=== PATIENT | male | born 1965 | race Caucasian/White ===

== ENCOUNTER 2017-09-08 17:12 | Emergency (ER) | payer OTHER ==
[~2017-09-08] VITALS: Ht 177.8 cm; Wt 119.8 kg
[~2017-09-08 17:12] MED LIST: HYDROCODONE-AP1 EAC6 PO; NORCO 5-325 TA1 EACH PO; NORFLEX100 MG PO; ONDANSETRON HCL4 M2 PO; PLAVIX 75 MG TA75 M1 PO; VALIUM5 MG PO; ZPAK PO
[2017-09-08] MEDS ORDERED: ASPIR 8181 M1 PO (17:25)
[2017-09-08] MEDS ORDERED: MEDROLDOSEPACK PO (17:26)
[2017-09-08] MEDS ORDERED: TRAMADOL 50 MG50 MG PO (17:26)
[2017-09-08 18:02] LABS: ABSOLUTE BASOPHILS 0.1 thou/uL (0.0-0.2); ABSOLUTE EOSINOPHILS 0.1 thou/uL (0.0-0.7); ABSOLUTE LYMPHOCYTES 2.3 thou/uL (0.8-5.3); ABSOLUTE MONOCYTES 0.2 thou/uL (0.0-1.2); ABSOLUTE NEUTROPHILS 3.7 thou/uL (1.6-8.1); BASOPHILS 1.2 %; EOSINOPHILS 1.4 %; HEMATOCRIT 50.2 % (42.0-52.0); LYMPHOCYTES 35.4 %; MCH 31.2 pg (26.0-34.0); MCHC 33.9 g/dL (28.0-37.0); MCV 91.9 fL (80.0-100.0); MONOCYTES 3.5 %; MPV 7.8 fl. (7.2-11.1); NUCLEATED RBCS 0 /100WBC; PLATELET COUNT* 297 thou/uL (150-400); POLYS 58.5 %; RBC 5.46 mil/uL (4.50-6.00); RDW-CV 14.4 % (10.5-14.5); WBC 6.4 thou/uL (4.0-11.0)
[2017-09-08 18:10] LABS: PROTIME 10.2 Seconds (9.20-11.50)
[2017-09-08 18:26] LABS: ANION GAP 8 mmol/L (7-16); BUN 12 mg/dL (7-18); CALCIUM 9.3 mg/dL (8.5-10.1); CHLORIDE 98 mmol/L (98-107); CO2 29 mmol/L (21-32); CREATININE 1.2 mg/dL (0.6-1.3); GLUCOSE 93 mg/dL (70-99); POTASSIUM 3.8 mmol/L (3.5-5.1); SODIUM 135 mmol/L (136-145)
[2017-09-08 18:41] LABS: ALBUMIN 3.7 g/dL (3.4-5.0); ALKALINE PHOSPHATASE 73 U/L (46-116); LIPASE 141 U/L (73-393); NT-PRO BRAIN NAT PEPTIDE 73 pg/mL (<300); SGOT 36 U/L (15-37); SGPT 61 U/L (30-65); TOTAL BILIRUBIN 0.5 mg/dL (<0.1-1.0); TOTAL PROTEIN 8.8 g/dL (6.4-8.2); TROPONIN-I LEVEL <0.06 ng/mL (<0.06)
[2017-09-08] MEDS ORDERED: MEDROL DOSPAK21 TA1 PO (18:52)
[2017-09-08] MEDS ORDERED: HYDROCODON-ACE1 EAC7 PO (18:52)
[2017-09-08 19:05] VITALS: BP 131/72
--- NOTE | 2017-09-09 13:37 | EKG ---
[place] [address] ELECTROCARDIOGRAM REPORT Name: PITO ZENG Room: [facility]#: [id number] Admission: 09/08/17 Attend Phys: Discharge: 09/08/17 Date of : 65 Report #: [id number] THIS REPORT FOR: //name// [facility] ED Test Date: 2017-09-08 Test Time: 17:32:40 Pat Name: PITO ZENG Department: Room: Gender: M Category Development Manager: [place] : 1965 Requested By: Bandar Murphy Order Number: [id number] MD: Saman Brink Measurements Intervals [place] Rate: 86 P: 47 UT: 157 QRS: 11 QRSD: 99 T: 39 QT: 363 QTc: 434 Interpretive Statements Sinus rhythm Baseline wander in lead(s) V6 Compared to ECG 06/01/2016 12:39:37 No significant changes Electronically Signed On 09-09-2017 13:36:50 CDT by Saman Brink [email or web address] <ELECTRONICALLY SIGNED> By: Saman Brink MD, [facility] 09/09/17 1336 173 31 Saman Brink MD, FACC /EPI
== END 2017-09-08 19:05 | disposition home or self-care (01) ==
LOC: M.ERS 17:12
PROVIDERS: Emergency Medicine
DX: M13.852 Other specified arthritis, left hip (principal); R07.89 Other chest pain; E78.00 Pure hypercholesterolemia, unspecified

== ENCOUNTER 2018-11-17 15:07 | Emergency (ER) | payer OTHER ==
[~2018-11-17] VITALS: Ht 177.8 cm; Wt 117.9 kg
[~2018-11-17 15:07] MED LIST changes: +ASPIR 8181 M1 PO; +HYDROCODON-ACE1 EAC7 PO; +MEDROL DOSPAK21 TA1 PO; +MEDROLDOSEPACK PO; +TRAMADOL 50 MG50 MG PO
[2018-11-17 16:12] VITALS: BP 143/78
== END 2018-11-17 16:12 ==
LOC: M.ERS 15:07
DX: M20.012 Mallet finger of left finger(s) (principal); E78.00 Pure hypercholesterolemia, unspecified; F17.210 Nicotine dependence, cigarettes, uncomplicated; Z90.49 Acquired absence of other specified parts of digestive tract; Z98.890 Other specified postprocedural states

== ENCOUNTER 2019-01-24 18:19 | Emergency (ER) | payer OTHER ==
[~2019-01-24] VITALS: Ht 177.8 cm; Wt 120.2 kg
[2019-01-24] MEDS ORDERED: NORCO 5-325 TA1 EAC1 PO (19:14)
[2019-01-24 20:10] VITALS: BP 142/85
== END 2019-01-24 19:55 | disposition home or self-care (01) ==
LOC: M.ERS 18:19
DX: S46.221A Laceration of muscle, fascia and tendon of other parts of biceps, right arm, initial encounter (principal); Z98.890 Other specified postprocedural states; X50.0XXA Overexertion from strenuous movement or load, initial encounter; Y92.89 Other specified places as the place of occurrence of the external cause; Y93.89 Activity, other specified; Y99.8 Other external cause status

== ENCOUNTER 2020-08-28 15:39 | Emergency (ER) | payer OTHER ==
[~2020-08-28] VITALS: Ht 177.8 cm; Wt 119.3 kg
[~2020-08-28 15:39] MED LIST changes: +NORCO 5-325 TA1 EAC1 PO
[2020-08-28] MEDS ORDERED: KAPSPARGO SPRIN50 MG PO (16:02)
[2020-08-28] MEDS ORDERED: LIPITOR40 MG PO (16:02)
[2020-08-28 16:42] LABS: URINE BILIRUBIN NEGATIVE (Negative); URINE BLOOD NEGATIVE (Negative); URINE CLARITY CLEAR; URINE COLOR YELLOW; URINE GLUCOSE-RANDOM NEGATIVE (Negative); URINE KETONES NEGATIVE (Negative); URINE LEUKOCYTES-REFLEX NEGATIVE (Negative); URINE NITRITE-REFLEX NEGATIVE (Negative); URINE PROTEIN NEGATIVE (Negative); URINE SPECIFIC GRAVITY >= 1.030 (1.005-1.030); URINE UROBILINOGEN 0.2 E.U./dl (0.2-1.0)
[2020-08-28 16:53] LABS: ABSOLUTE BASOPHILS 0.1 thou/uL (0.0-0.2); ABSOLUTE EOSINOPHILS 0.2 thou/uL (0.0-0.7); ABSOLUTE LYMPHOCYTES 2.2 thou/uL (0.8-5.3); ABSOLUTE MONOCYTES 0.3 thou/uL (0.0-1.2); ABSOLUTE NEUTROPHILS 4.6 thou/uL (1.6-8.1); BASOPHILS 1.3 %; EOSINOPHILS 3.3 %; HEMATOCRIT 44.8 % (42.0-52.0); HEMOGLOBIN 15.7 gm/dL (14.0-18.0); LYMPHOCYTES 29.2 %; MCH 31.4 pg (26.0-34.0); MCHC 35.1 g/dL (28.0-37.0); MCV 89.3 fL (80.0-100.0); MONOCYTES 4.6 %; MPV 7.7 fl. (7.2-11.1); NUCLEATED RBCS 0 /100WBC; PLATELET COUNT* 287 thou/uL (150-400); POLYS 61.6 %; RBC 5.01 mil/uL (4.50-6.00); RDW-CV 14.5 % (10.5-14.5); WBC 7.5 thou/uL (4.0-11.0)
[2020-08-28 17:02] LABS: CALCIUM 8.8 mg/dL (8.5-10.1); CREATININE 1.3 mg/dL (0.6-1.3)
[2020-08-28 17:06] LABS: ALBUMIN 3.5 g/dL (3.4-5.0); TOTAL BILIRUBIN 0.4 mg/dL (<0.1-1.0); TOTAL PROTEIN 8.4 g/dL (6.4-8.2)
[2020-08-28] MEDS ORDERED: ZANAFLEX4 MG PO (18:17)
[2020-08-28] MEDS ORDERED: HYDROCODON-ACE1 EAC7 PO (18:18)
[2020-08-28 19:04] VITALS: BP 110/62
== END 2020-08-28 19:05 | disposition home or self-care (01) ==
LOC: M.ERS 15:39
PROVIDERS: Nurse Practitioner Family
DX: I71.9 Aortic aneurysm of unspecified site, without rupture (principal); M51.36 Other intervertebral disc degeneration, lumbar region

== ENCOUNTER 2020-11-19 17:25 | Emergency (ER) | payer OTHER ==
[~2020-11-19] VITALS: Ht 177.8 cm; Wt 115.7 kg
[~2020-11-19 17:25] MED LIST changes: +KAPSPARGO SPRIN50 MG PO; +LIPITOR40 MG PO; +ZANAFLEX4 MG PO
[2020-11-19] MEDS ORDERED: FLOMAX0.4 MG PO (17:37)
[2020-11-19] MEDS ORDERED: LASIX 40 MG TAB40 MG PO (17:37)
[2020-11-19 18:16] LABS: ABSOLUTE BASOPHILS 0.1 thou/uL (0.0-0.2); ABSOLUTE EOSINOPHILS 0.4 thou/uL (0.0-0.7); ABSOLUTE LYMPHOCYTES 1.6 thou/uL (0.8-5.3); ABSOLUTE MONOCYTES 0.8 thou/uL (0.0-1.2); ABSOLUTE NEUTROPHILS 8.4 thou/uL (1.6-8.1); BASOPHILS 0.9 %; EOSINOPHILS 3.6 %; HEMATOCRIT 39.2 % (42.0-52.0); HEMOGLOBIN 13.1 gm/dL (14.0-18.0); LYMPHOCYTES 14.3 %; MCH 28.2 pg (26.0-34.0); MCHC 33.5 g/dL (28.0-37.0); MCV 84.1 fL (80.0-100.0); MONOCYTES 6.9 %; MPV 7.9 fl. (7.2-11.1); NUCLEATED RBCS 0 /100WBC; PLATELET COUNT* 274 thou/uL (150-400); POLYS 74.3 %; RBC 4.66 mil/uL (4.50-6.00); RDW-CV 17.4 % (10.5-14.5); WBC 11.4 thou/uL (4.0-11.0)
[2020-11-19 18:29] LABS: CALCIUM 8.6 mg/dL (8.5-10.1); CREATININE 1.4 mg/dL (0.6-1.3); POTASSIUM 3.9 mmol/L (3.5-5.1)
[2020-11-19 18:33] LABS: ALBUMIN 3.9 g/dL (3.4-5.0); TOTAL BILIRUBIN 0.3 mg/dL (<0.1-1.0); TOTAL PROTEIN 8.6 g/dL (6.4-8.2)
[2020-11-19 19:38] LABS: URINE BILIRUBIN NEGATIVE (Negative); URINE BLOOD 3+ (Negative); URINE CLARITY CLEAR; URINE COLOR YELLOW; URINE GLUCOSE-RANDOM NEGATIVE (Negative); URINE KETONES NEGATIVE (Negative); URINE LEUKOCYTES NEGATIVE (Negative); URINE NITRITE NEGATIVE (Negative); URINE PROTEIN 1+ (Negative); URINE UROBILINOGEN 0.2 E.U./dl (0.2-1.0)
[2020-11-19 19:45] LABS: BACTERIA 1-9 Few /HPF (None Seen); CASTS None Seen /LPF (None Seen); CRYSTALS None Seen /LPF (None Seen); SQUAMOUS 0-3 Few /LPF (0-3); URINE RBC >20 Many /HPF (0-2); URINE WBC 0-5 Rare /HPF (0-5)
[2020-11-19] MEDS ORDERED: ZOFRAN ODT4 MG PO (20:34)
[2020-11-19] MEDS ORDERED: TORADOL 10 MG T10 MG PO (20:34)
[2020-11-19] MEDS ORDERED: BACTRIM DS TAB1 EAC1 PO (20:34)
[2020-11-19 20:46] VITALS: BP 120/78
--- NOTE | 2020-11-20 12:18 | EKG ---
[place] [address] ELECTROCARDIOGRAM REPORT Name: PITO ZENG Room: [facility]#: [id number] Admission: 11/19/20 Attend Phys: Discharge: 11/19/20 Date of : 65 Date of Service: 11/19/20 1729 Report #: [id number] THIS REPORT FOR: //name// [facility] ED Test Date: 2020-11-19 Test Time: 17:29:48 Pat Name: PITO ZENG Department: Room: Gender: Clinical Studies Specialist: : 1965 Requested By: Charlie Arellano Order Number: [id number] MD: Pito Hernandez Measurements Intervals [place] Rate: 79 P: 50 MD: 181 QRS: 36 QRSD: 110 T: -89 QT: 421 QTc: 483 Interpretive Statements Sinus rhythm with rare pvc's Borderline T abnormalities, inferior leads Borderline prolonged QT interval Baseline wander in lead(s) V4,V5,V6 Compared to ECG 09/08/2017 17:32:40 T-wave abnormality now present Electronically Signed On 11-20-2020 12:18:33 CDT by Pito Hernandez [email or web address] <ELECTRONICALLY SIGNED> By: Pito Hernandez MD, FACC 11/20/20 1218 28 28 Pito Hernandez MD, FAC /EPI
== END 2020-11-19 20:46 | disposition home or self-care (01) ==
LOC: M.ERS 17:25
PROVIDERS: Physician Assistant
DX: N13.2 Hydronephrosis with renal and ureteral calculous obstruction (principal); Z98.890 Other specified postprocedural states; Z98.61 Coronary angioplasty status; Z79.899 Other long term (current) drug therapy; Z95.828 Presence of other vascular implants and grafts; Z79.82 Long term (current) use of aspirin